=== PATIENT | female | born 1990 | race Caucasian/White ===

== ENCOUNTER 2016-10-02 23:07 | Emergency (ER) | payer MEDICAID, OTHER ==
[~2016-10-02] VITALS: Ht 165.1 cm; Wt 50.0 kg
[2016-10-02 23:34] VITALS: BP 115/66; PULSE 65; RESP 19; TEMP 98.3; O2SAT 100
--- NOTE | 2016-10-02 23:37 | PD ---
HPI Chief Complaint: Psychiatric Symptoms Time Seen by Provider: 23:34 Travel History International Travel<30 days: No Contact w/Intl Traveler<30days: No History of Present Illness HPI Patient comes under [place] by police after running away from home and refusing to go back. Per Ely act patient has the mental capacity of [id number]. Patient denies any medical complaints or concerns. Denies any chest pain, shortness of breath, nausea, vomiting, abdominal pain, fevers, , or loss change in bowel or bladder. Patient denies anything making her symptoms worse. States not going home makes her better, because her mom's going to be mad at her. PFSH Past Medical History Medical History: Denies Significant Hx Social History Alcohol Use: No Tobacco Use: No Substance Use: No Allergies-Medications (Allergen,Severity, Reaction): Coded Allergies: No Known Allergies (Unverified , 10/02/16) Reported Meds & Prescriptions Reported Meds & Active Scripts Active No Active Prescriptions or Reported Medications Review of Systems Except as stated in HPI: all other systems reviewed are Neg Physical Exam Narrative GENERAL: Well-developed, well nourished, in no acute distress, and non-ill appearing. SKIN: Focused skin assessment warm and dry. HEAD: Atraumatic. Normocephalic. EYES: Pupils equal and round. EOMI. No scleral icterus. No injection or drainage. ENT: No nasal bleeding or discharge. Mucous membranes pink and moist. NECK: Trachea midline. Supple. No nuclear rigidity. CARDIOVASCULAR: Regular rate and rhythm. No murmur appreciated. RESPIRATORY: No accessory muscle use. No respiratory distress. Clear to auscultation. Breath sounds equal bilaterally. MUSCULOSKELETAL: No obvious deformities. No clubbing. No cyanosis. No edema. Full range of motion. NEUROLOGICAL: Awake and alert. No obvious cranial nerve deficits. Motor grossly within normal limits. Normal speech. PSYCHIATRIC: Appropriate mood and affect; insight and judgment normal. Data Data Last Documented VS Vital Signs Date Time Temp Pulse Resp B/P Pulse Ox O2 Delivery O2 Flow Rate FiO2 10/02/16 23:34 98.3 65 19 115/66 100 Orders Complete Blood Count With Diff (10/02/16 23:22) Comprehensive Metabolic Panel (10/02/16 23:22) Urinalysis - C+S If Indicated (10/02/16 23:22) Ed Urine Pregnancytest Poc (10/02/16 23:22) Psych Screen (10/02/16 23:22) Drug Screen, Random Urine (10/02/16 23:22) Alcohol (Ethanol) (10/02/16 23:22) Salicylates (Aspirin) (10/02/16 23:22) Tylenol (Acetaminophen) (10/02/16 23:22) Urine Culture (10/02/16 23:30) Labs Laboratory Tests Test 10/02/16 23:30 White Blood Count 11.5 TH/MM3 Red Blood Count 4.42 MIL/MM3 Hemoglobin 13.4 GM/DL Hematocrit 38.9 % Mean Corpuscular Volume 88.0 FL Mean Corpuscular Hemoglobin 30.4 PG Mean Corpuscular Hemoglobin 34.5 % Concent Red Cell Distribution Width 13.6 % Platelet Count 198 TH/MM3 Mean Platelet Volume 9.8 FL Neutrophils (%) (Auto) 74.6 % Lymphocytes (%) (Auto) 17.2 % Monocytes (%) (Auto) 6.3 % Eosinophils (%) (Auto) 1.5 % Basophils (%) (Auto) 0.4 % Neutrophils # (Auto) 8.5 TH/MM3 Lymphocytes # (Auto) 2.0 TH/MM3 Monocytes # (Auto) 0.7 TH/MM3 Eosinophils # (Auto) 0.2 TH/MM3 Basophils # (Auto) 0.0 TH/MM3 CBC Comment DIFF FINAL Differential Comment Urine Color LIGHT-YELLOW Urine Turbidity HAZY Urine pH 6.5 Urine Specific [place] 1.009 Urine Protein NEG mg/dL Urine Glucose (UA) NEG mg/dL Urine Ketones NEG mg/dL Urine Occult Blood NEG Urine Nitrite NEG Urine Bilirubin NEG Urine Urobilinogen LESS THAN 2.0 MG/DL Urine Leukocyte Esterase NEG Urine RBC 1 /hpf Urine WBC 4 /hpf Urine Squamous Epithelial 3 /hpf Cells Urine Transitional Epithelial <1 /hpf Cells Urine Amorphous Sediment RARE Urine Bacteria MOD /hpf Urine Mucus FEW /lpf Microscopic Urinalysis Comment CULTURE INDICATED Sodium Level 141 MEQ/L Potassium Level 3.9 MEQ/L Chloride Level 108 MEQ/L Carbon Dioxide Level 23.9 MEQ/L Anion Gap 9 MEQ/L Blood Urea Nitrogen 11 MG/DL Creatinine 0.80 MG/DL Estimat Glomerular Filtration 88 ML/MIN Rate Random Glucose 75 MG/DL Calcium Level 8.8 MG/DL Total Bilirubin 0.3 MG/DL Aspartate Amino Transf 7 U/L (AST/SGOT) Alanine Aminotransferase 14 U/L (ALT/SGPT) Alkaline Phosphatase 58 U/L Total Protein 7.4 GM/DL Albumin 4.2 GM/DL Salicylates Level LESS THAN 1.7 MG/DL Urine Opiates Screen NEG Acetaminophen Level LESS THAN 2.0 MCG/ML Urine Barbiturates Screen NEG Urine Amphetamines Screen NEG Urine Benzodiazepines Screen NEG Urine Cocaine Screen NEG Urine Cannabinoids Screen NEG Ethyl Alcohol Level LESS THAN 3 MG/DL MDM Medical Decision Making Medical Screen Exam Complete: Yes Emergency Medical Condition: Yes Differential Diagnosis Homicidal, suicidal, electrolyte abnormality, UTI, other Narrative Course Patient was seen and examined. Labs were obtained and reviewed. Will await urine culture patient is asymptomatic and afebrile suspect it may be contaminant. Patient medically cleared for further treatment and evaluation by psych. Final disposition per psych. Diagnosis Primary Impression: Medical clearance for psychiatric admission Scripts No Active Prescriptions or Reported Meds Condition: Kenan Dillon Oct 02, 2016 23:37 No Active Prescriptions or Reported Meds Condition: Kenan Dillon Oct 02, 2016 23:37
[2016-10-02 23:49] LABS: AUTOMATED NEUTROPHIL # 8.5 TH/MM3 (1.8-7.7); BACTERIA, URINE MOD /hpf; BASOPHIL % 0.4 % (0.0-2.0); BLOOD, URINE NEG (NEG); COMMENT (UR) CULTURE INDICATED; CULTURE IF INDICATED CULTURE INDICATED; EOSINOPHIL # 0.2 TH/MM3 (0-0.4); EOSINOPHIL % 1.5 % (0.0-4.0); GLUCOSE,URINE NEG (NEG); HEMATOCRIT 38.9 % (35.0-46.0); HEMO FLAGS DIFF FINAL; KETONE, URINE NEG (NEG); LYMPH % 17.2 % (9.0-44.0); MEAN CORPUSCULAR HEMOGLOBIN 30.4 PG (27.0-34.0); MEAN CORPUSCULAR HGB CONC 34.5 % (32.0-36.0); MONO % 6.3 % (0.0-8.0); MUCUS URINE FEW /lpf (OCC); NEUT % 74.6 % (16.0-70.0); NITRITE,URINE NEG (NEG); PH, URINE 6.5 (5.0-8.5); PLATELET COUNT 198 TH/MM3 (150-450); RED BLOOD COUNT 4.42 MIL/MM3 (4.00-5.30); RED CELL DISTRIBUTION WIDTH 13.6 % (11.6-17.2); SQUAMOUS EPITHELIAL CELL URINE 3 /hpf (0-5); TRANSITIONAL EPI CELLS, URINE <1 /hpf; URINE COLOR LIGHT-YELLOW (YELLW/STRAW); WHITE BLOOD COUNT 11.5 TH/MM3 (4.0-11.0)
[2016-10-02 23:54] LABS: AMPHETAMINE, URINE NEG (NEG); BARBITURATES, URINE NEG (NEG); COCAINE, URINE NEG (NEG)
[2016-10-03 00:09] LABS: ANION GAP 9 MEQ/L (5-15)
[2016-10-03 00:11] LABS: ALKALINE PHOSPHATASE 58 U/L (45-117); ALT (GPT) 14 U/L (10-53); AST (GOT) 7 U/L (15-37); BICARBONATE 23.9 MEQ/L (21.0-32.0); BLOOD UREA NITROGEN 11 MG/DL (7-18); CHLORIDE 108 MEQ/L (98-107); GLOMERULAR FILTRATION RATE 88 ML/MIN (>89); POTASSIUM 3.9 MEQ/L (3.5-5.1); SODIUM (NA) 141 MEQ/L (136-145); TOTAL BILIRUBIN ADULT 0.3 MG/DL (0.2-1.0)
[2016-10-03 00:12] LABS: ACETAMINOPHEN LESS THAN 2.0 MCG/ML (10.0-30.0)
[2016-10-03 07:42] VITALS: BP 102/60; PULSE 80; RESP 14; O2SAT 98
--- NOTE | 2016-10-03 09:08 | PD.PSY.CON ---
Provisional Diagnosis Admission Date Date of consultation 10/03/2016 [place] I. 1. Autism spectrum disorder Lyon II. 1. Intellectual disability History of Present Illness Service Psychiatry Consult Requested By Emergency department Reason for Consult Ely act Primary Care Physician Unknown HPI Ms. Sylvester is a 26-year-old female with a history of autism spectrum disorder and intellectual disability who presents under a Ely act from law enforcement alleging that the patient ran away. Reviewing the electronic medical record, I see no prior psychiatric contact within our system. Patient seen and examined. Chart reviewed. Case discussed with nursing staff. Patient has been no behavioral problem in the ED per nurse. On my examination today, the patient presents as quite childlike. She is calm and cooperative with evaluation however. She says that she ran away because she doesn't like living at home. She says that she doesn't like living at home because "my mom is being bossy. She tells me what to do. My sister keeps bossing me around. So does my dad. I just took off." There is no evidence of any unstable mood disorder in this patient and in fact she seems generally euthymic. She denies any suicidal or homicidal ideation. There is no evidence of any unstable psychotic disorder. She denies audiovisual hallucinations, nor can I elicit any delusional beliefs. The remainder of the psychiatric ROS is negative. Past psychiatric history: Patient is likely an unreliable historian. She thinks that she might follow psychiatrically at [facility]. She is unsure of her diagnosis. She denies a history of psychiatric admissions or suicide attempts. Family history: Patient denies any family history of mental illness. Chemical dependency history: The patient reports occasional alcohol use. Social history: Graduated high school in special education classes. Has a boyfriend. No children. Denies any or legal history. Obtained collateral from patient's mother, Eden, over the phone. She notes that the patient has a history of autism, intellectual disability and ADHD. She has not been on any psychotropic medications in over a year. She periodically experiences temper tantrums and has been physically aggressive in the past. She previously had been staying with her boyfriend but had recently returned to the family home. Mother notes that the patient is "okay, so long as she gets her way." Mother also notes that the patient has been hospitalized in the past and has seen psychiatrists and has been on multiple psychotropic medications, none of which have proven particularly helpful. Mother agrees that psychiatric hospitalization would not be beneficial for this patient at this time. No one in the family has guardianship is of the expense per mother. They are not connected with [employer], nor do they have an outpatient family preservation caseworker. Review of Systems ROS Limitations: Poor Historian Except as stated in HPI: all other systems reviewed are Neg Past Family Social History Coded Allergies: No Known Allergies (Unverified , 10/02/16) Past Medical History See electronic medical record No Active Prescriptions or Reported Meds On no psychotropics currently Patient's Strengths (min. 2) Good physical health. Verbally fluent. Physical Exam Physical exam completed by ED provider. On my examination today, the patient appears to be in no acute physical distress. No motor abnormalities noted. Labs and vitals reviewed: Vital Signs Vital Signs Date Time Temp Pulse Resp B/P Pulse Ox O2 Delivery O2 Flow Rate FiO2 10/03/16 07:42 80 14 102/60 98 Room Air 10/02/16 23:34 98.3 Lab Results Laboratory Tests Test 10/02/16 23:30 White Blood Count 11.5 TH/MM3 Red Blood Count 4.42 MIL/MM3 Hemoglobin 13.4 GM/DL Hematocrit 38.9 % Mean Corpuscular Volume 88.0 FL Mean Corpuscular Hemoglobin 30.4 PG Mean Corpuscular Hemoglobin 34.5 % Concent Red Cell Distribution Width 13.6 % Platelet Count 198 TH/MM3 Mean Platelet Volume 9.8 FL Neutrophils (%) (Auto) 74.6 % Lymphocytes (%) (Auto) 17.2 % Monocytes (%) (Auto) 6.3 % Eosinophils (%) (Auto) 1.5 % Basophils (%) (Auto) 0.4 % Neutrophils # (Auto) 8.5 TH/MM3 Lymphocytes # (Auto) 2.0 TH/MM3 Monocytes # (Auto) 0.7 TH/MM3 Eosinophils # (Auto) 0.2 TH/MM3 Basophils # (Auto) 0.0 TH/MM3 CBC Comment DIFF FINAL Differential Comment Urine Color LIGHT-YELLOW Urine Turbidity HAZY Urine pH 6.5 Urine Specific [place] 1.009 Urine Protein NEG mg/dL Urine Glucose (UA) NEG mg/dL Urine Ketones NEG mg/dL Urine Occult Blood NEG Urine Nitrite NEG Urine Bilirubin NEG Urine Urobilinogen LESS THAN 2.0 MG/DL Urine Leukocyte Esterase NEG Urine RBC 1 /hpf Urine WBC 4 /hpf Urine Squamous Epithelial 3 /hpf Cells Urine Transitional Epithelial <1 /hpf Cells Urine Amorphous Sediment RARE Urine Bacteria MOD /hpf Urine Mucus FEW /lpf Microscopic Urinalysis Comment CULTURE INDICATED Sodium Level 141 MEQ/L Potassium Level 3.9 MEQ/L Chloride Level 108 MEQ/L Carbon Dioxide Level 23.9 MEQ/L Anion Gap 9 MEQ/L Blood Urea Nitrogen 11 MG/DL Creatinine 0.80 MG/DL Estimat Glomerular Filtration 88 ML/MIN Rate Random Glucose 75 MG/DL Calcium Level 8.8 MG/DL Total Bilirubin 0.3 MG/DL Aspartate Amino Transf 7 U/L (AST/SGOT) Alanine Aminotransferase 14 U/L (ALT/SGPT) Alkaline Phosphatase 58 U/L Total Protein 7.4 GM/DL Albumin 4.2 GM/DL Salicylates Level LESS THAN 1.7 MG/DL Urine Opiates Screen NEG Acetaminophen Level LESS THAN 2.0 MCG/ML Urine Barbiturates Screen NEG Urine Amphetamines Screen NEG Urine Benzodiazepines Screen NEG Urine Cocaine Screen NEG Urine Cannabinoids Screen NEG Ethyl Alcohol Level LESS THAN 3 MG/DL Mental Status Examination Patient is in hospital gown. She is well groomed. She is awake and alert and oriented to person at least. No motor abnormalities noted. Speech is within normal limits for rate, tone and volume. Language and fund of knowledge reduced for age. Focus and concentration fairly intact. Memory grossly intact on clinical exam. Mood fair and affect euthymic but quite childlike. Thought process concrete. No loosening of associations. No delusions elicited. Denies audiovisual hallucinations. Denies suicidal or homicidal ideation. Insight and judgment are chronically poor. Assessment & Plan Problem List: (1) Intellectual disability ICD Code: F79 (2) Autism spectrum disorder ICD Code: F84.0 Assessment & Plan This is a 26-year-old female with psychiatric history as detailed above who presents under Ely act. On my examination today, I can detect no unstable mental illness as defined under the Ely act. Intellectual disability and developmental disabilities are not covered by the Ely Act definition of mental illness. She is unlikely to derive any significant benefit from psychiatric hospitalization, in any event, and patient's mother agrees with this assessment. I have lifted the Ely act. Patient would likely benefit far more from increased support in the community. I have asked the nurse from the [facility] to refer the patient's mother for case management services through [facility] and also to provide a referral to [employer]. In the longer term, patient's family might benefit from obtaining guardianship over patient and considering long-term placement. Patient to return to psychiatric emergency room for any concerning psychiatric symptoms. Patient is otherwise psychiatrically clear for discharge from the ED. Thank you very much for this consultation. Naseem Boo MD Oct 03, 2016 09:08
[2016-10-03 11:40] VITALS: BP 100/53; PULSE 60; RESP 18; O2SAT 98
== END 2016-10-03 15:09 | disposition home or self-care (01) ==
LOC: NEPD 23:07
DX: Z00.8 Encounter for other general examination (principal)
CPT/HCPCS: 80053; 80307; 81001; 84703; 85025; 87086; 99283

== ENCOUNTER 2016-11-29 18:48 | Inpatient (IN) | payer MEDICAID, OTHER ==
[~2016-11-29] VITALS: Ht 162.6 cm; Wt 38.2 kg
[2016-11-29 19:07] VITALS: BP 102/65; PULSE 98; RESP 16; TEMP 98.7; O2SAT 97
[2016-11-29] MEDS ORDERED: SODIUM CHLOR 0.9% 1000 ML INJ 1,000 ML IV SCH ×2 (19:16)
--- NOTE | 2016-11-29 19:23 | PD ---
HPI Chief Complaint: Altered Mental Status Time Seen by Provider: 19:05 Travel History International Travel<30 days: No Contact w/Intl Traveler<30days: No Traveled to known affect area: No History of Present Illness HPI This is a 26-year-old female who has a history of autism, ADHD, intellectual disability per chart review, presents in police custody for evaluation. For the past week the patient has been acting catatonic, she has been drooling on herself. She had an outpatient CK test which was elevated and she was sent here to rule out neuroleptic malignant syndrome. According to her paperwork the patient was given invega 117 mg on November 10, 2016 and Cogentin BID at [facility]. She was transferred to long-term and she was being given Risperdal once a day which was stopped on November 27. History is limited from the patient given her current clinical condition and her history of developmental delay, autism. She reports that she feels "lightheaded and woozy." No other complaints at this time. COUNTS INCLUDE 234 BEDS AT THE [facility] Past Medical History Developmental Delay: Yes Diminished Hearing: No Immunizations Current: Yes Tetanus Vaccination: Unknown ?: Not LMP: pt unsure Past Surgical History Neurologic Surgery: Yes (BACK) Social History Alcohol Use: No Tobacco Use: No Substance Use: No Allergies-Medications (Allergen,Severity, Reaction): Coded Allergies: No Known Allergies (Unverified , 10/02/16) Reported Meds & Prescriptions Reported Meds & Active Scripts Active Reported Ensure (Nutritional Supplements) 1 Pow Pow 237 Ml PO BID Lorazepam 0.5 Mg Tab 0.5 Mg PO TID PRN Review of Systems ROS Limitations: Clinical Condition, Poor Historian Except as stated in HPI: all other systems reviewed are Neg Physical Exam Exam Limitations: Clinical Condition, Poor Historian Narrative GENERAL: This is a well-developed well-nourished female who is in no acute distress. SKIN: Warm and dry. HEAD: Atraumatic. Normocephalic. EYES: Pupils equal and round reactive to light. Extraocular muscles are intact. No scleral icterus. No injection or drainage. ENT: No nasal bleeding or discharge. Mucous membranes pink and moist. NECK: Trachea midline. No JVD. CARDIOVASCULAR: Regular rate and rhythm. No murmur appreciated. RESPIRATORY: No accessory muscle use. Clear to auscultation. Breath sounds equal bilaterally. GASTROINTESTINAL: Abdomen soft, non-tender, nondistended. Hepatic and splenic margins not palpable. MUSCULOSKELETAL: No obvious deformities. No edema. NEUROLOGICAL: Awake and alert. Catatonic. Mild muscle rigidity is noted. 1+ patellar reflex, Achilles reflex bilaterally. No clonus. Some drooling is noted. PSYCHIATRIC: Flat affect. Data Data Last Documented VS Vital Signs Date Time Temp Pulse Resp B/P (MAP) Pulse Ox O2 Delivery O2 Flow Rate FiO2 11/29/16 20:41 82 18 105/62 (76) 100 Room Air 11/29/16 19:07 98.7 Orders Orders Complete Blood Count With Diff (11/29/16 19:16) Comprehensive Metabolic Panel (11/29/16 19:16) Creatine Kinase (Cpk) (11/29/16 19:16) Electrocardiogram (11/29/16 ) Lactic Acid (11/29/16 19:16) Sodium Chlor 0.9% 1000 Ml Inj (Ns 1000 M (11/29/16 19:16) Ed Urine Pregnancytest Poc (11/29/16 19:16) Sodium Chlor 0.9% 1000 Ml Inj (Ns 1000 M (11/29/16 19:16) Drug Screen, Random Urine (11/29/16 19:23) CKMB (11/29/16 19:25) CKMB% (11/29/16 19:25) Admit Order (Ed Use Only) (11/29/16 21:24) Labs Laboratory Tests Test 11/29/16 19:25 White Blood Count 10.5 TH/MM3 Red Blood Count 4.76 MIL/MM3 Hemoglobin 14.9 GM/DL Hematocrit 42.7 % Mean Corpuscular Volume 89.7 FL Mean Corpuscular Hemoglobin 31.4 PG Mean Corpuscular Hemoglobin Concent 35.0 % Red Cell Distribution Width 13.7 % Platelet Count 207 TH/MM3 Mean Platelet Volume 10.5 FL Neutrophils (%) (Auto) 70.7 % Lymphocytes (%) (Auto) 18.7 % Monocytes (%) (Auto) 8.9 % Eosinophils (%) (Auto) 1.3 % Basophils (%) (Auto) 0.4 % Neutrophils # (Auto) 7.4 TH/MM3 Lymphocytes # (Auto) 2.0 TH/MM3 Monocytes # (Auto) 0.9 TH/MM3 Eosinophils # (Auto) 0.1 TH/MM3 Basophils # (Auto) 0.0 TH/MM3 CBC Comment DIFF FINAL Differential Comment Blood Urea Nitrogen 8 MG/DL Creatinine 0.72 MG/DL Random Glucose 87 MG/DL Total Protein 7.6 GM/DL Albumin 4.5 GM/DL Calcium Level 9.5 MG/DL Alkaline Phosphatase 75 U/L Aspartate Amino Transf (AST/SGOT) 58 U/L Alanine Aminotransferase (ALT/SGPT) 32 U/L Total Bilirubin 0.5 MG/DL Sodium Level 137 MEQ/L Potassium Level 3.4 MEQ/L Chloride Level 100 MEQ/L Carbon Dioxide Level 29.1 MEQ/L Anion Gap 8 MEQ/L Estimat Glomerular Filtration Rate 100 ML/MIN Lactic Acid Level 1.3 mmol/L Total Creatine Kinase 1454 U/L Creatine Kinase MB 19.1 NG/ML Creatine Kinase MB % 1.3 % MDM Medical Decision Making Medical Screen Exam Complete: Yes Emergency Medical Condition: Yes Medical Record Reviewed: Yes Differential Diagnosis Neuroleptic malignant syndrome, serotonin syndrome, rhabdomyolysis Narrative Course This is a 26-year-old female who for the past week has been acting catatonic, drooling, appears to have mild muscle rigidity as well as sialorrhea. She had an elevated CK as an outpatient and was sent here for further evaluation. She was recently given invega as well as Cogentin and has been on Risperdal which was discontinued 2 days ago. Certainly her symptoms of mild muscle rigidity, elevated CK, sialorrhea, catotonia are concerning for early neuroleptic malignant syndrome. Reassuringly she is not hyperthermic. The patient be given 2 L of IV fluids. She was placed on ECG monitoring pulse oximetry. Plan is for basic lab work, 12-lead EKG. The patient's lab work does reveal an elevated CK, potassium 3.4, otherwise unremarkable. At this point and plan is to admit the patient for further treatment of early neuroleptic malignant syndrome and rhabdomyolysis. Discussed with Dr. Eldridge who is agreeable. Diagnosis Primary Impression: Neuroleptic malignant syndrome Additional Impression: Rhabdomyolysis Qualified Codes: M62.82 - Rhabdomyolysis Admitting Information Admitting Physician Requests: Admit Maurilio Orantes Nov 29, 2016 19:23
[2016-11-29 19:50] LABS: AUTOMATED NEUTROPHIL # 7.4 TH/MM3 (1.8-7.7); BASOPHIL % 0.4 % (0.0-2.0); EOSINOPHIL # 0.1 TH/MM3 (0-0.4); EOSINOPHIL % 1.3 % (0.0-4.0); HEMATOCRIT 42.7 % (35.0-46.0); HEMO FLAGS DIFF FINAL; LYMPH % 18.7 % (9.0-44.0); MEAN CELL VOLUME 89.7 FL (80.0-100.0); MEAN CORPUSCULAR HEMOGLOBIN 31.4 PG (27.0-34.0); MONO % 8.9 % (0.0-8.0); NEUT % 70.7 % (16.0-70.0); PLATELET COUNT 207 TH/MM3 (150-450); RED BLOOD COUNT 4.76 MIL/MM3 (4.00-5.30); RED CELL DISTRIBUTION WIDTH 13.7 % (11.6-17.2); WHITE BLOOD COUNT 10.5 TH/MM3 (4.0-11.0)
[2016-11-29 20:01] LABS: ANION GAP 8 MEQ/L (5-15); AST (GOT) 58 U/L (15-37); BICARBONATE 29.1 MEQ/L (21.0-32.0); BLOOD UREA NITROGEN 8 MG/DL (7-18); CHLORIDE 100 MEQ/L (98-107); GLOMERULAR FILTRATION RATE 100 ML/MIN (>89); POTASSIUM 3.4 MEQ/L (3.5-5.1); SODIUM (NA) 137 MEQ/L (136-145)
[2016-11-29 20:02] LABS: ALT (GPT) 32 U/L (10-53)
[2016-11-29 20:16] LABS: ALKALINE PHOSPHATASE 75 U/L (45-117); CREATINE KINASE 1454 U/L (26-192); TOTAL BILIRUBIN ADULT 0.5 MG/DL (0.2-1.0)
[2016-11-29 20:25] VITALS: BP 96/64; PULSE 136; RESP 18; O2SAT 100
[2016-11-29] MEDS ORDERED: RISP1 PO (20:31)
[2016-11-29] MEDS ORDERED: ENSUPOW PO (20:31)
[2016-11-29] MEDS ORDERED: LORA-373 PO (20:31)
[2016-11-29 20:41] VITALS: BP 105/62; PULSE 82; RESP 18; O2SAT 100
[2016-11-29 21:26] LABS: CKMB 19.1 NG/ML (0.5-3.6)
[2016-11-29 21:57] VITALS: BP 101/66; PULSE 112; RESP 16; O2SAT 98
[2016-11-29 22:30] VITALS: BP 103/66; PULSE 70; RESP 16; O2SAT 100
[2016-11-29] MEDS ORDERED: LORazepam 0.5 MG TAB PO PRN (22:30)
--- NOTE | 2016-11-29 23:26 | EKG ---
Date Performed: 11/29/2016 Time Performed: 19:56:38 PTAGE: 26 years EKG: Sinus rhythm POSSIBLE LEFT ATRIAL ENLARGEMENT NONSPECIFIC T-WAVE ABNORMALITY BORDERLINE ECG NO PREVIOUS TRACING DOCTOR: Nikunj Cameron Interpretating Date/Time 11/29/2016 23:25:37
[2016-11-29 23:46] VITALS: BP 101/62; PULSE 72; RESP 16; O2SAT 100
[2016-11-29] MEDS: SODIUM CHLOR 0.9% 1000 ML INJ 1,000 ML IV SCH (23:58)
[2016-11-29] MEDS: FAMOTIDINE 20 MG/2 ML VIAL IV PUSH SCH (23:58)
[2016-11-30] VITALS (7 sets, daily range): BP systolic 101–116; BP diastolic 58–68; PULSE 62–88; RESP 16–20; TEMP 97.5–98.5; O2SAT 93–100
[2016-11-30] MEDS: SODIUM CHLOR 0.9% 1000 ML INJ 1,000 ML IV SCH ×5 (01:15→22:30)
[2016-11-30] MEDS: FAMOTIDINE 20 MG/2 ML VIAL IV PUSH SCH ×2 (08:52→21:39)
[2016-11-30] MEDS ORDERED: NUTRITIONAL SUPPLEMENTS PO SCH (09:00)
[2016-11-30] MEDS ORDERED: LORazepam 2 MG/ML VIAL IV PUSH STA (11:08)
--- NOTE | 2016-11-30 11:12 | HHI.HP ---
HPI Service [facility] Primary Care Physician No Primary Care Physician Admission Diagnosis neuroleptic malignant syndrome, rhabdomyolysis Diagnoses: Chief Complaint: altered mental status (Tali Bianchi) Travel History International Travel<30 Days: No Contact w/Intl Traveler <30 Da: No Traveled to Known Affected Are: No (Tali Bianchi) History of Present Illness Ms. Sylvester is a 26-year-old female with significant past medical history of autism spectrum disorder, ADHD, intellectual disability. Patient presented to the emergency room under police custody for evaluation for acting catatonic and elevated CK test with the concern for possible neuroleptic malignant syndrome. Review of paperwork from the [place] [facility], the patient was given Hemabate 117 mg on November 10, 2016 and Cogentin twice a day a store . She was transferred to the [place] [facility] and she was put on Risperdal once a day, this was stopped November 27. Patient is examined in the presence of the guard. Per the guard, patient's is usually slow to respond, but pleasant. Apparently she has become catatonic, has been drooling on herself. She was noted with rigid extremities. Patient is not able to provide much information. She knows she is in the hospital, able to provide the year but otherwise can articulate why she is in the hospital. Patient denies any discomfort when asked. She's been evaluated by psychiatrist Dr. Holguin. She denies any suicidal ideation , no homicidal ideation. She denies visual or auditory hallucinations. She was seen in September in the emergency room and evaluated by . Laboratory workup was completed. CBC unremarkable. BMP remarkable for elevated total creatinine kinase 1454, AST 58, potassium 3.4. Patient is currently on IV fluids. She was able to eat well this morning. Patient is admitted for further evaluation and treatment. (Tali Bianchi) Review of Systems ROS Limitations: Clinical Condition, Altered Mental Status Gastrointestinal: COMPLAINS OF: Abdominal pain (Tali Bianchi) Past Family Social History Past Medical History ADHD Austism LMP-unknown Past Surgical History Unable to obtain Reported Medications Reported Meds & Active Scripts Active Reported Ensure (Nutritional Supplements) 1 Pow Pow 237 Ml PO BID Lorazepam 0.5 Mg Tab 0.5 Mg PO TID PRN (Tali Bianchi) Allergies: Coded Allergies: No Known Allergies (Unverified , 10/02/16) Active Ordered Medications Inpatient Medications Famotidine (Pepcid Inj) 20 mg Q12HR IV PUSH Last administered on 11/30/16 08: 52; Start 11/29/16 at 22:30 Lorazepam (Ativan) 0.5 mg TID PRN PO ANXIETY; Start 11/29/16 at 22:30 Sodium Chloride 1,000 ml @ 125 mls/hr Q8H IV Last administered on 11/30/16 07 :02; Start 11/29/16 at 22:30 Family History unable to provide Social History Currently incarcerated before she was living with mother.Has siblings no smoking no ETOH no illegal drug use Patient completed high school, she's single, she's not working. (Tali Bianchi) Physical Exam Vital Signs Vital Signs Date Time Temp Pulse Resp B/P (MAP) Pulse Ox O2 Delivery O2 Flow Rate FiO2 11/30/16 09:05 98.5 76 20 102/59 (73) 100 11/30/16 04:00 97.7 62 20 102/63 (76) 99 11/30/16 01:15 97.5 68 16 116/68 (84) 100 11/30/16 00:24 72 16 102/63 (76) 99 11/29/16 23:46 72 16 101/62 (75) 100 Room Air 11/29/16 22:30 70 16 103/66 (78) 100 Room Air 11/29/16 21:57 112 16 101/66 (78) 98 Room Air 11/29/16 20:41 82 18 105/62 (76) 100 Room Air 11/29/16 20:25 136 18 96/64 (75) 100 Room Air 11/29/16 19:07 98.7 98 16 102/65 (77) 97 Physical Exam GENERAL: This is a well-nourished, well-developed patient, in no apparent distress. SKIN: No rashes, ecchymoses or lesions. Cool and dry. HEAD: Atraumatic. Normocephalic. No temporal or scalp tenderness. EYES: Pupils equal round and reactive. Extraocular motions intact. No scleral icterus. Bilateral conjunctiva with purulent exudate, mildly erythematous. ENT: Nose without bleeding, purulent drainage or septal hematoma. Throat without erythema, tonsillar hypertrophy or exudate. Uvula midline. Airway patent. NECK: Trachea midline. No JVD or lymphadenopathy. Supple, nontender, no meningeal signs. CARDIOVASCULAR: Regular rate and rhythm without murmurs, gallops, or rubs. RESPIRATORY: Clear to auscultation. Breath sounds equal bilaterally. No wheezes , rales, or rhonchi. GASTROINTESTINAL: Abdomen soft, non-tender, nondistended. No hepato-splenomegaly , or palpable masses. No guarding. MUSCULOSKELETAL: Extremities without clubbing, cyanosis, or edema. No joint tenderness, effusion, or edema noted. No calf tenderness. Negative Homans sign bilaterally. NEUROLOGICAL: Awakes to voice, slow to respond. Poor historian. Noted drooling. Rigidity to upper and lower extremities noted. Follows simple commands. Laboratory Laboratory Tests Test 11/29/16 19:25 White Blood Count 10.5 Red Blood Count 4.76 Hemoglobin 14.9 Hematocrit 42.7 Mean Corpuscular Volume 89.7 Mean Corpuscular Hemoglobin 31.4 Mean Corpuscular Hemoglobin Concent 35.0 Red Cell Distribution Width 13.7 Platelet Count 207 Mean Platelet Volume 10.5 Neutrophils (%) (Auto) 70.7 Lymphocytes (%) (Auto) 18.7 Monocytes (%) (Auto) 8.9 Eosinophils (%) (Auto) 1.3 Basophils (%) (Auto) 0.4 Neutrophils # (Auto) 7.4 Lymphocytes # (Auto) 2.0 Monocytes # (Auto) 0.9 Eosinophils # (Auto) 0.1 Basophils # (Auto) 0.0 CBC Comment DIFF FINAL Differential Comment Blood Urea Nitrogen 8 Creatinine 0.72 Random Glucose 87 Total Protein 7.6 Albumin 4.5 Calcium Level 9.5 Alkaline Phosphatase 75 Aspartate Amino Transf (AST/SGOT) 58 Alanine Aminotransferase (ALT/SGPT) 32 Total Bilirubin 0.5 Sodium Level 137 Potassium Level 3.4 Chloride Level 100 Carbon Dioxide Level 29.1 Anion Gap 8 Estimat Glomerular Filtration Rate 100 Lactic Acid Level 1.3 Total Creatine Kinase 1454 Creatine Kinase MB 19.1 Creatine Kinase MB % 1.3 (Tali Bianchi) Result Diagram: 11/29/16192411/29/161924 Caprini VTE Risk Assessment Caprini VTE Risk Assessment: No/Low Risk (score <= 1) Caprini Risk Assessment Model Point Value = 1 Point Value = 2 Point Value = 3 Point Value = 5 Age 41-60 Minor surgery BMI > 25 kg/m2 Swollen legs Varicose veins or History of unexplained or recurrent spontaneous Oral contraceptives or hormone replacement Sepsis (< 1 month) Serious lung disease, including pneumonia (< 1 month) Abnormal pulmonary function Acute myocardial infarction Congestive heart failure (< 1 month) History of inflammatory bowel disease Medical patient at bed rest Age 61-74 Arthroscopic surgery Major open surgery (> 45 min) Laparoscopic surgery (> 45 min) Malignancy Confined to bed (> 72 hours) Immobilizing plaster cast Central venous access Age >= 75 History of VTE Family history of VTE Factor V Leiden Prothrombin [id number] Lupus anticoagulant Anticardiolipin antibodies Elevated serum homocysteine Heparin-induced thrombocytopenia Other congenital or acquired thrombophilia Stroke (< 1 month) Elective arthroplasty Hip, pelvis, or leg fracture Acute spinal cord injury (< 1 month) Prophylaxis Regimen Total Risk Factor Score Risk Level Prophylaxis Regimen 0-1 Low Early ambulation 2 Moderate Order ONE of the following: *Sequential Compression Device (SCD) *Heparin 5000 units SQ BID 3-4 Higher Order ONE of the following medications: *Heparin 5000 units SQ TID *Enoxaparin/Lovenox 40 mg SQ daily (WT < 150 kg, CrCl > 30 mL/min) *Enoxaparin/Lovenox 30 mg SQ daily (WT < 150 kg, CrCl > 10-29 mL/min) *Enoxaparin/Lovenox 30 mg SQ BID (WT < 150 kg, CrCl > 30 mL/min) AND/OR *Sequential Compression Device (SCD) 5 or more Highest Order ONE of the following medications: *Heparin 5000 units SQ TID (Preferred with Epidurals) *Enoxaparin/Lovenox 40 mg SQ daily (WT < 150 kg, CrCl > 30 mL/min) *Enoxaparin/Lovenox 30 mg SQ daily (WT < 150 kg, CrCl > 10-29 mL/min) *Enoxaparin/Lovenox 30 mg SQ BID (WT < 150 kg, CrCl > 30 mL/min) AND *Sequential Compression Device (SCD) (Tali Bianchi) Assessment and Plan Problem List: (1) 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 Torres 26-year-old female with history of ADHD, autism, ADHD, intellectual disability. Presented catatonic with elevated CPK, concern for possible neuroleptic syndrome Catatonia -Psychiatry has been consulted -Benzodiazepine challenge will be started, continue to monitor the patient closely Possible neuroleptic syndrome, patient noted with elevated CPK. Had Invega as well as Risperdal. Rhabdomyolysis -Follow CPK levels -Continue with IV fluids -Monitor renal function, follow BMP level Bilateral conjunctivae -Ciprofloxacin 2 drops each eye 3 times a day Home medications reviewed, some initiated as indicated SCDs for DVT prophylaxis Pepcid for GI prophylaxis Under care discussed with attending and registered nurse. Further management of the patient will be dependent on the hospital course This patient was seen by myself and Dr. Torres, this H&P is written on his behalf (Tali Bianchi) Assessment and Plan seen, examined by myself, Dr Torres, today in the presence of the nurse and the armed guard Psychiatry evaluation noted Rule out neuroleptic malignant syndrome Also has bilateral conjunctivitis, Cipro eyedrops ordered Very poor oral hygiene, Peridex ordered Discussed with patient, she is a poor historian Discussed with mid level provider The exam, history, and the medical decision-making described in the above note were completed with the assistance of the mid-level provider. I reviewed the findings presented. I attest that I had a [id number] encounter with the patient on the same day, and personally performed and documented my assessment and findings in the medical record. (Santosh Torres MD) Physician Certification 2 Midnight Certification Type: Admission for Inpatient Services Order for Inpatient Services The services are ordered in accordance with Medicare regulations or non- Medicare payer requirements, as applicable. In the case of services not specified as inpatient-only, they are appropriately provided as inpatient services in accordance with the 2-midnight benchmark. Estimated LOS (days): 2 2 days is the estimated time the patient will need to remain in the hospital, assuming treatment plan goals are met and no additional complications. Post-Hospital Plan: Other (specify) ([place] [facility] ) (Tali Bianchi) Problem Qualifiers (1) Rhabdomyolysis: Qualified Codes: M62.82 - Rhabdomyolysis (2) Conjunctivitis: Qualified Codes: H10.33 - Unspecified acute conjunctivitis, bilateral Tali Bianchi Nov 30, 2016 11:10 Santosh Torres MD Nov 30, 2016 17:24
[2016-11-30] MEDS ORDERED: POTASSIUM CHLORIDE 25 MEQ EFFERVESCENT TAB PO ONE (12:30)
--- NOTE | 2016-11-30 14:36 | PD.PSY.CON ---
Provisional Diagnosis Admission Date Nov 29, 2016 at 21:26 [place] I. Autism spectrum disorder, ADHD, catatonia [place] II. Deferred History of Present Illness Service Psychiatry Consult Requested By Reason for Consult Catatonic symptoms Primary Care Physician No Primary Care Physician HPI The patient is a 26-year-old woman, homicidal with her mother, unemployed, single on SSI, with psychiatric history of autism spectrum disorder , ADHD, intellectual disability, 3 psychotic hospitalizations, established outpatient care in [facility], she is on Invega Sustenna, 117 mg monthly, last dose was 11/20/2016, patient was seen here in [place] in the ER by Dr. Boo in September 2016, documentation was reviewed, somatic and medical history, who presents in police custody for evaluation of stiffness and changes in mentation. For the past week the patient has been acting catatonic, she has been drooling on herself. She had an outpatient CK test which was elevated and she was sent here to rule out neuroleptic malignant syndrome. According to her paperwork the patient was given invega 117 mg on November 10, 2016 and Cogentin BID at [facility]3]. [facility] and she was being given Risperdal once a day which was stopped on November 27. On psychiatric evaluation today patient is poorly cooperative due to levels of stiffness and rigidity, she has a marked and significant mutism, speech latency, blocking thought, negativism and catalepsy. Patient is able to mumble a few months automatic/monosyllabic statements. He says that she feels okay, she described her mood as "fine", denies suicidal ideation, denies homicidal ideation, denies visual and auditory hallucinations. Patient is unable to articulate the reason of her hospitalization. She is oriented 3. Juan Luis and Darrel Scale of catatonia was performed, it was 17, which shows moderate catatonia. Patient denies the use of illicit drugs or alcohol. Review of Systems Constitutional: DENIES: Diaphoretic episodes, Fatigue, Fever, Weight gain, Weight loss, Chills, Dizziness, Change in appetite, Night Sweats Endocrine: DENIES: Abnorml menstrual pattern, Heat/cold intolerance, Polydipsia , Polyuria, Polyphagia Eyes: DENIES: Blurred vision, Diplopia, Eye inflammation, Eye pain, Vision loss , Photosensitivity, Double Vision Ears, nose, mouth, throat: DENIES: Tinnitus, Hearing loss, Vertigo, Nasal discharge, Oral lesions, Throat pain, Hoarseness, Ear Pain, Running Nose, Epistaxis, Sinus Pain, Toothache, Odynophagia Respiratory: DENIES: Apneas, Cough, Snoring, Wheezing, Hemoptysis, Sputum production, Shortness of breath Cardiovascular: DENIES: Chest pain, Palpitations, Syncope, Dyspnea on Exertion , PND, Lower Extremity Edema, Orthopnea, Claudication Gastrointestinal: DENIES: Abdominal pain, Black stools, Bloody stools, Constipation, Diarrhea, Nausea, Vomiting, Difficulty Swallowing, Anorexia Musculoskeletal: DENIES: Joint pain, Muscle aches, Stiffness, Joint Swelling, Back pain, Neck pain Integumentary: DENIES: Abnormal pigmentation, Pruritus, Rash, Nail changes, Breast masses, Breast skin changes, Nipple discharge Hematologic/lymphatic: DENIES: Bruising, Lymphadenopathy Immunologic/allergic: DENIES: Eczema, Urticaria Neurologic: DENIES: Abnormal gait, Headache, Localized weakness, Paresthesias, Seizures, Speech Problems, Tremor, Poor Balance Psychiatric: DENIES: Anxiety, Confusion, Mood changes, Depression, Hallucinations, Agitation, Suicidal Ideation, Homicidal Ideation, Delusions Past Family Social History Coded Allergies: No Known Allergies (Unverified , 10/02/16) Reported Medications Nutritional Supplements (Ensure) 1 Pow Pow, 237 ML PO BID 11/29/16 Lorazepam (Lorazepam) 0.5 Mg Tab, 0.5 MG PO TID Y for ANXIETY, TAB 0 Refills 11/29/16 Discontinued Reported Medications Risperidone (Risperdal) 1 Mg Tab, 1 MG PO DAILY, #30 TAB 0 Refills 11/29/16 Current Medications Medications (Trade) Dose Ordered Sig/Carina Route Start Time Stop Time Status Last Admin (Ativan) 0.5 mg TID PRN PO 11/29/16 22:30 Sodium Chloride 1,000 ml @ 125 mls/hr Q8H IV 11/29/16 22:30 11/30/16 07:02 (Pepcid Inj) 20 mg Q12HR IV PUSH 11/29/16 22:30 11/30/16 08:52 (Ativan) 2 mg Q6H PO 11/30/16 14:15 UNV Family History No psychiatric family history Social History Graduated high school in special education classes. Has a boyfriend. No children. Denies any or legal history. Patient's Strengths (min. 2) Established outpatient care Physical Exam Vital Signs Vital Signs Date Time Temp Pulse Resp B/P (MAP) Pulse Ox O2 Delivery O2 Flow Rate FiO2 11/30/16 12:00 98.2 67 18 102/58 (73) 93 11/29/16 23:46 Room Air I/O 11/30/16 11/30/16 12/01/16 08:00 16:00 00:00 Intake Total 812 ml 180 ml Balance 812 ml 180 ml Lab Results Test 11/29/16 19:25 White Blood Count 10.5 TH/MM3 Red Blood Count 4.76 MIL/MM3 Hemoglobin 14.9 GM/DL Hematocrit 42.7 % Mean Corpuscular Volume 89.7 FL Mean Corpuscular Hemoglobin 31.4 PG Mean Corpuscular Hemoglobin Concent 35.0 % Red Cell Distribution Width 13.7 % Platelet Count 207 TH/MM3 Mean Platelet Volume 10.5 FL Neutrophils (%) (Auto) 70.7 % Lymphocytes (%) (Auto) 18.7 % Monocytes (%) (Auto) 8.9 % Eosinophils (%) (Auto) 1.3 % Basophils (%) (Auto) 0.4 % Neutrophils # (Auto) 7.4 TH/MM3 Lymphocytes # (Auto) 2.0 TH/MM3 Monocytes # (Auto) 0.9 TH/MM3 Eosinophils # (Auto) 0.1 TH/MM3 Basophils # (Auto) 0.0 TH/MM3 CBC Comment DIFF FINAL Differential Comment Blood Urea Nitrogen 8 MG/DL Creatinine 0.72 MG/DL Random Glucose 87 MG/DL Total Protein 7.6 GM/DL Albumin 4.5 GM/DL Calcium Level 9.5 MG/DL Alkaline Phosphatase 75 U/L Aspartate Amino Transf (AST/SGOT) 58 U/L Alanine Aminotransferase (ALT/SGPT) 32 U/L Total Bilirubin 0.5 MG/DL Sodium Level 137 MEQ/L Potassium Level 3.4 MEQ/L Chloride Level 100 MEQ/L Carbon Dioxide Level 29.1 MEQ/L Anion Gap 8 MEQ/L Estimat Glomerular Filtration Rate 100 ML/MIN Lactic Acid Level 1.3 mmol/L Total Creatine Kinase 1454 U/L Creatine Kinase MB 19.1 NG/ML Creatine Kinase MB % 1.3 % Mental Status Examination Appearance woman, age appearing, very rigid and stiff, poorly cooperative Speech: Other (poverty of speech, low tone, low volume,) Orientation: x3 Memory: Unremarkable Thought Process: Logical, Goal Directed Thought Content: Unremarkable Language Limited due to the level of rigidity and catatonia Hallucination Type: None Suicidal Ideation: No Previous Suicide Attempts: No Homicidal Ideation: No Previous Homicide Attempts: No Insight: Good Judgment: WNL Affect if Inappropriate: Flat Mood: Euthymic Motor Activity: Abnormal gait-specify Assessment & Plan Problem List: (1) 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 Patient denies depressive symptoms, she denies anxiety, she denies suicidal and homicidal ideation, she denies visual and auditory hallucinations. Patient is goal oriented, linear, oriented 3. No fluctuation of consciousness or attention deficit seems to be present. Current presentation seems to be consistent with catatonia, however due to recent initiation of Invega Sustenna 117 and addition was previously of relatively high doses of Risperdal at bedtime, plus mildly elevated liver enzymes, mildly elevated CPK, even though no confusion, no autonomic instability are present, early NMS also needs to be in the differential. An initial Ativan challenge of 2 mg IV was done with not a significant result, but Will start Ativan 2 mg every 6 hours to treat catatonia. Continue aggressive hydration and close monitoring of vital signs. Repeat comprehensive metabolic panel in the morning. We'll follow-up. Assessment & Plan Estimated LOS: Vinicio Cage MD Nov 30, 2016 14:36
[2016-11-30] MEDS: LORazepam 2 MG TAB PO SCH ×2 (15:15→21:38)
[2016-11-30] MEDS: CIPROFLOXACIN 0.3% OPTH SOLN 2.5 ML BTL EACH EYE SCH (18:38)
[2016-11-30 21:33] LABS: BICARBONATE 26.3 MEQ/L (21.0-32.0); POTASSIUM 3.3 MEQ/L (3.5-5.1)
[2016-11-30] MEDS: CHLORHEXIDINE GLUCONATE 0.12% 15 ML CUP SWISH-SPIT SCH (21:38)
[2016-11-30 21:54] LABS: CKMB 3.6 NG/ML (0.5-3.6)
[2016-12-01] MEDS: LORazepam 2 MG TAB PO SCH ×4 (03:03→21:45)
[2016-12-01] MEDS: SODIUM CHLOR 0.9% 1000 ML INJ 1,000 ML IV SCH ×2 (06:22→17:32)
[2016-12-01 06:52] LABS: HEMATOCRIT 35.6 % (35.0-46.0); MEAN CELL VOLUME 90.2 FL (80.0-100.0); MEAN CORPUSCULAR HEMOGLOBIN 31.1 PG (27.0-34.0); MEAN CORPUSCULAR HGB CONC 34.5 % (32.0-36.0); PLATELET COUNT 160 TH/MM3 (150-450); RED BLOOD COUNT 3.95 MIL/MM3 (4.00-5.30); RED CELL DISTRIBUTION WIDTH 13.6 % (11.6-17.2); REVIEW FLAG FINAL; WHITE BLOOD COUNT 8.5 TH/MM3 (4.0-11.0)
[2016-12-01 07:24] LABS: BICARBONATE 26.3 MEQ/L (21.0-32.0); POTASSIUM 3.5 MEQ/L (3.5-5.1)
[2016-12-01 08:00] VITALS: BP 100/58; PULSE 96; RESP 18; TEMP 97.2; O2SAT 98
[2016-12-01 09:00] LABS: CKMB 1.8 NG/ML (0.5-3.6)
[2016-12-01] MEDS: CHLORHEXIDINE GLUCONATE 0.12% 15 ML CUP SWISH-SPIT SCH ×2 (09:00→21:44)
[2016-12-01] MEDS: CIPROFLOXACIN 0.3% OPTH SOLN 2.5 ML BTL EACH EYE SCH ×3 (09:00→17:32)
[2016-12-01] MEDS: FAMOTIDINE 20 MG/2 ML VIAL IV PUSH SCH ×2 (09:44→21:44)
--- NOTE | 2016-12-01 10:29 | HHI.PR ---
Subjective Remarks Appears more lethargic, finally opened eyes, was able to provide name of hospital but doesn't know year Unable to obtain ROS Per guard at bedside, patient was able to only drink half of Ensure but did not eat rest of her meal. She ambulated with assistance per 2 to bathroom No fever Voiding okay Objective Objective Results - Vital Signs Date Time Temp Pulse Resp B/P (MAP) Pulse Ox O2 Delivery O2 Flow Rate FiO2 12/01/16 08:00 97.2 96 18 100/58 (72) 98 11/30/16 21:27 97.5 88 18 110/59 (76) 100 11/30/16 16:00 98.5 76 20 101/58 (72) 100 11/30/16 12:00 98.2 67 18 102/58 (73) 93 I/O 11/30/16 11/30/16 11/30/16 12/01/16 12/01/16 12/01/16 07:00 15:00 23:00 07:00 15:00 23:00 Intake Total 992 ml 1509 ml 1582 ml Balance 992 ml 1509 ml 1582 ml Intake IV Total 992 ml 1509 ml 1582 ml # Voids 3 Result Diagram: 12/01/16 0528 12/01/16 0528 Other Results Laboratory Tests Test 11/30/16 20:11 12/01/16 05:28 Blood Urea Nitrogen 5 6 Creatinine 0.56 0.49 Random Glucose 107 74 Calcium Level 8.3 7.9 Sodium Level 141 143 Potassium Level 3.3 3.5 Chloride Level 109 110 Carbon Dioxide Level 26.3 26.3 Anion Gap 6 7 Estimat Glomerular Filtration Rate 133 155 Total Creatine Kinase 437 312 Creatine Kinase MB 3.6 1.8 Creatine Kinase MB % 0.8 0.6 White Blood Count 8.5 Red Blood Count 3.95 Hemoglobin 12.3 Hematocrit 35.6 Mean Corpuscular Volume 90.2 Mean Corpuscular Hemoglobin 31.1 Mean Corpuscular Hemoglobin Concent 34.5 Red Cell Distribution Width 13.6 Platelet Count 160 Mean Platelet Volume 10.9 ROS General: Other (unable to obtain ROS) Physical Exam Physical Exam GENERAL: This is a well-nourished, well-developed patient, in no apparent distress. SKIN: No rashes, ecchymoses or lesions. Cool and dry. HEAD: Atraumatic. Normocephalic. No temporal or scalp tenderness. EYES: Pupils equal round and reactive. Extraocular motions intact. No scleral icterus. Bilateral conjunctiva with purulent exudate, mildly erythematous. ENT: Nose without bleeding, purulent drainage or septal hematoma. Throat without erythema, tonsillar hypertrophy or exudate. Uvula midline. Airway patent. NECK: Trachea midline. No JVD or lymphadenopathy. Supple, nontender, no meningeal signs. CARDIOVASCULAR: Regular rate and rhythm without murmurs, gallops, or rubs. RESPIRATORY: Clear to auscultation. Breath sounds equal bilaterally. No wheezes , rales, or rhonchi. GASTROINTESTINAL: Abdomen soft, non-tender, nondistended. No hepato-splenomegaly , or palpable masses. No guarding. MUSCULOSKELETAL: Extremities without clubbing, cyanosis, or edema. No joint tenderness, effusion, or edema noted. No calf tenderness. Negative Homans sign bilaterally. NEUROLOGICAL: Slightly more difficult to wake up today, finally opened eyes. Able to provide name of hospital, doesn't know year. Noted drooling. Rigidity to upper and lower extremities noted. Follows simple commands. 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 Presented catatonic with elevated CPK, concern for possible neuroleptic syndrome Catatonia -Patient a psychiatric input, patient appears to be in moderate catatonia. Benzodiazepine challenge given yesterday, minimal response -Continue with Ativan 2 mg every 6 hours Possible neuroleptic syndrome, patient noted with elevated CPK. Had Invega as well as Risperdal. Rhabdomyolysis -CPK levels trending down -Continue with IV fluids -Renal function stable -Replace potassium Bilateral conjunctivae -Ciprofloxacin 2 drops each eye 3 times a day Add heparin and continue with SCDs for DVT prophylaxis Pepcid for GI prophylaxis Patient appears more lethargic today. If she is not able to take in enough nutrition, she may require NG tube placement for tube feedings We will wait for further recommendations from psychiatry We'll add PT OT Discussed with RN Discussed with guard Discussed with Dr. Torres This patient was seen by myself and Dr. Torres, this note is written on his behalf Problem Qualifiers (1) Rhabdomyolysis: Qualified Codes: M62.82 - Rhabdomyolysis (2) Conjunctivitis: Qualified Codes: H10.33 - Unspecified acute conjunctivitis, bilateral Tali Bianchi Dec 01, 2016 10:29
[2016-12-01] MEDS ORDERED: POTASSIUM CHLORIDE 25 MEQ EFFERVESCENT TAB PO ONE (10:30)
[2016-12-01 12:00] VITALS: BP 102/60; PULSE 90; RESP 18; TEMP 97.5; O2SAT 98
--- NOTE | 2016-12-01 14:03 | HHI.PYPN ---
Subjective Remarks On psychiatric evaluation today patient was found having her physical therapy, she continues to be a slow, have difficulty walking, seems to be a little bit sedated, but stiffness, negativism,echophenomena, thought blocking seems to be improved. Patient reports normal mood, she says that she wants to get better and be discharged back home. She denies depressive symptoms, she denies suicidal and homicidal ideation, she denies visual and auditory hallucinations. Patient does not seem to be paranoid or delusional, she is mostly logical, coherent and relevant. Oriented 3, no fluctuation of consciousness. No agitation, no hostility, no behavioral dysregulation reported. Review of Systems Other No somatic complaints Objective Alert: Yes [place]: Person, Place, Date Mood: Calm Affect: Flat Memory Intact: Comment (no assessed) Hallucinations: Other (denies hallucinations) Delusions: No Delusion Type: Other (not elicited) Suicidal: Ideation (no SI) Homicidal: Ideation (no HI) Insight/Judgment Fair Labs Test 11/30/16 20:11 12/01/16 05:28 Blood Urea Nitrogen 5 MG/DL 6 MG/DL Creatinine 0.56 MG/DL 0.49 MG/DL Random Glucose 107 MG/DL 74 MG/DL Calcium Level 8.3 MG/DL 7.9 MG/DL Sodium Level 141 MEQ/L 143 MEQ/L Potassium Level 3.3 MEQ/L 3.5 MEQ/L Chloride Level 109 MEQ/L 110 MEQ/L Carbon Dioxide Level 26.3 MEQ/L 26.3 MEQ/L Anion Gap 6 MEQ/L 7 MEQ/L Estimat Glomerular Filtration Rate 133 ML/MIN 155 ML/MIN Total Creatine Kinase 437 U/L 312 U/L Creatine Kinase MB 3.6 NG/ML 1.8 NG/ML Creatine Kinase MB % 0.8 % 0.6 % White Blood Count 8.5 TH/MM3 Red Blood Count 3.95 MIL/MM3 Hemoglobin 12.3 GM/DL Hematocrit 35.6 % Mean Corpuscular Volume 90.2 FL Mean Corpuscular Hemoglobin 31.1 PG Mean Corpuscular Hemoglobin Concent 34.5 % Red Cell Distribution Width 13.6 % Platelet Count 160 TH/MM3 Mean Platelet Volume 10.9 FL Vitals/IOs Vital Signs Date Time Temp Pulse Resp B/P (MAP) Pulse Ox O2 Delivery O2 Flow Rate FiO2 12/01/16 12:00 97.5 90 18 102/60 (74) 98 11/29/16 23:46 Room Air Intake and Output 12/01/16 12/01/16 12/02/16 08:00 16:00 00:00 Intake Total 1582 ml Balance 1582 ml Assessment & Plan Problem List: (1) 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 She seems to be oversedated by Ativan. We will increase Ativan to 2 mg every 8 hours. Monitor closely sedation. CPK has continued to trending down , there is no evidence of autonomic instability. Patient benefits of psychiatric hospitalization for stabilization of catatonia. However, since the patient is under arrest, she needs to be transferred back to a [facility] to continue psychiatric treatment. Assessment & Plan Estimated LOS: days Justification for Cont. Inpt. Patient needs psychiatric hospitalization for stabilization of catatonia once medically stable. Needs to be transferred back to [facility]. Vinicio Holguin MD Dec 01, 2016 14:03
--- NOTE | 2016-12-01 15:41 | RADRPT ---
EXAM DATE/TIME: 12/01/2016 15:22 [facility] COMPARISON: No previous studies available for comparison. INDICATIONS : Altered mental status. RADIATION DOSE: 56.35 CTDIvol (mGy) MEDICAL HISTORY : Developmental delay. SURGICAL HISTORY : None. ENCOUNTER: Initial ACUITY: 1 day PAIN SCALE: Non-responsive LOCATION: cranial TECHNIQUE: Multiple contiguous axial images were obtained of the head. Using automated exposure control and adj ustment of the mA and/or kV according to patient size, radiation dose was kept as low as reasonably a chievable to obtain optimal diagnostic quality images. DICOM format image data is available electro nically for review and comparison. FINDINGS: CEREBRUM: The ventricles are normal for age. No evidence of midline shift, mass lesion, hemorrhage or acute in farction. No extra-axial fluid collections are seen. POSTERIOR FOSSA: The cerebellum and brainstem are intact. The 4th ventricle is midline. The cerebellopontine angle i s unremarkable. EXTRACRANIAL: The visualized portion of the orbits is intact. SKULL: The calvaria is intact. No evidence of skull fracture. CONCLUSION: Normal examination. Tyrel Varghese MD on December 01, 2016 at 15:39 Board Certified Radiologist. This report was verified electronically.
[2016-12-01 16:00] VITALS: BP 105/64; PULSE 84; RESP 18; TEMP 97.9; O2SAT 98
--- NOTE | 2016-12-01 16:51 | MG ---
cc: ANGIE TOMLIN MD Lab No: Date: 11/30/16 Age: 26 Sex: F Race: REFERRING PHYSICIAN ASIA Bianchi An EEG was obtained on this 26-year-old patient with history of being awake and drowsy and catatonic. The EEG shows a fair amount of alpha activity. There are beta rhythms and there is sleepy spindles. There are some K complexes. Initially, there is domination by sleep activity. Photic stimulation shows no change. INTERPRETATION Probably normal asleep EEG. No epileptiform features present. Angie Tomlin MD [facility] /2:54 PM /4:45 PM
[2016-12-01 17:47] LABS: BLOOD, URINE NEG (NEG); GLUCOSE,URINE NEG (NEG); KETONE, URINE NEG (NEG); NITRITE,URINE NEG (NEG); PH, URINE 7.5 (5.0-8.5); SQUAMOUS EPITHELIAL CELL URINE <1 /hpf (0-5); URINE COLOR LIGHT-YELLOW (YELLW/STRAW)
[2016-12-01 17:48] LABS: COMMENT (UR) CATH-CULT NOT IND; CULTURE IF INDICATED CATH CULTURE NOT IND
[2016-12-01 20:00] VITALS: BP 99/60; PULSE 99; RESP 18; TEMP 98; O2SAT 97
[2016-12-01] MEDS: HEPARIN SODIUM - SQ 10,000 UNITS/ML VIAL SQ SCH (21:44)
[2016-12-02] VITALS (7 sets, daily range): BP systolic 92–228; BP diastolic 54–117; PULSE 76–118; RESP 16–20; TEMP 97.2–98.6; O2SAT 95–98
[2016-12-02] MEDS: SODIUM CHLOR 0.9% 1000 ML INJ 1,000 ML IV SCH ×3 (02:49→22:30)
[2016-12-02] MEDS: LORazepam 2 MG TAB PO SCH ×3 (05:55→21:45)
[2016-12-02 08:17] LABS: INDIRECT BILIRUBIN 0.2 MG/DL (0.0-0.8); TOTAL BILIRUBIN ADULT 0.4 MG/DL (0.2-1.0)
--- NOTE | 2016-12-02 09:18 | HHI.PR ---
Subjective Remarks Sleeping drowsy, slow minimal response but does rouse up when breakfast comes Drooling noted while sleeping Afebrile, BP steady at 104/60 Skin warm and dry , Objective Objective Results - Vital Signs Date Time Temp Pulse Resp B/P (MAP) Pulse Ox O2 Delivery O2 Flow Rate FiO2 12/02/16 08:19 98.3 97 20 94/55 (68) 97 12/02/16 04:00 97.8 85 18 104/60 (75) 98 12/02/16 00:00 97.2 89 18 98/63 (75) 98 12/01/16 20:00 98.0 99 18 99/60 (73) 97 12/01/16 16:00 97.9 84 18 105/64 (78) 98 12/01/16 12:00 97.5 90 18 102/60 (74) 98 I/O 12/01/16 12/01/16 12/01/16 12/02/16 12/02/16 12/02/16 07:00 15:00 23:00 07:00 15:00 23:00 Intake Total 1582 ml 1472 ml Output Total 900 ml Balance 1582 ml 572 ml Intake IV Total 1582 ml 1472 ml Output Urine Total 900 ml # Voids 3 3 Result Diagram: 12/01/1652712/01/16527 ROS General: Other (limited ROS decreased responsiveness) Physical Exam Physical Exam PHYSICAL EXAMINATION GENERAL: This is a thin female Resting in the bed sleeping and entered room. HEAD: Normocephalic , atraumatic OROPHARYNGEAL: Oropharynx, dry NECK: Supple Trachea midline without deviation. CARDIAC: Regular rhythm, regular rate, S1 and S2 are heard. No murmurs rubs or gallops, no pedal edema LUNGS: Clear to auscultation bilaterally. No obvious rhonchi ABDOMEN: Flat, Soft, nontender, bowel sounds soft EXTREMITIES: No edema. Warm to touch NEUROLOGICAL: Lethargic/ drowsy to respond SKIN:Warm, dry A/P Assessment and Plan Vital signs reviewed, afebrile, BP 104/60 Labs reviewed, CT scan normal, AST 13, total protein level 5.9 Catatonia According to guard patient is still sleeping a lot, lethargic but did begin to answer one-word questions when food arrived. Still very weak and -Continue with Ativan 2 mg every 6 hours, appreciate psychiatric eval and plan a care, after medically stable, will need to be transitioned to psychiatric facility for further psychiatric treatment Seizure precautions, does show signs of appetite today, we'll monitor intake and output PT OT for strengthening and mobility evaluation, currently patient has been on bed rest past few days. Will increase activity to be out of bed but only with assistance Possible neuroleptic syndrome, Continue to monitor labs which appeared to be trending down Neuro checks Bilateral conjunctivae Medical management with Ciprofloxacin 2 drops each eye 3 times a day DVT prophylaxis, heparin SCDs Pepcid for GI prophylaxis Discharge planning based on patient's response to hospital course of treatment Discussed with nurse Discussed with guard Discussed with Dr. Torres, seen on his behalf Holli Zavaleta Dec 02, 2016 09:18
[2016-12-02] MEDS: HEPARIN SODIUM - SQ 10,000 UNITS/ML VIAL SQ SCH ×2 (09:27→21:45)
[2016-12-02] MEDS: CHLORHEXIDINE GLUCONATE 0.12% 15 ML CUP SWISH-SPIT SCH ×2 (09:27→21:46)
[2016-12-02] MEDS: FAMOTIDINE 20 MG/2 ML VIAL IV PUSH SCH ×2 (09:27→21:46)
[2016-12-02] MEDS: CIPROFLOXACIN 0.3% OPTH SOLN 2.5 ML BTL EACH EYE SCH ×3 (09:27→18:32)
--- NOTE | 2016-12-02 12:45 | MB ---
cc: ANGIE SKINNER M.D. DATE OF CONSULTATION: 12/02/16 HISTORY OF PRESENT ILLNESS She is a 26-year-old female see in neurological consultation with a history of catatonic state. She was admitted on 11/29. She came from [facility]. She had been in intermediate and was transferred to [facility] because of the psychiatric status and apparent suicidal plans or activity. The patient has a history of autism, some apparent cognitive impairment. She has been in the hospital and she was recently treated with a combination of antipsychotic medications. She was on Invega. Apparently, last dose November 20. She had been on Risperdal. She was admitted here with possible neuroleptic malignant syndrome. There has been some improvement in her overall status, rigidity and she is being treated with Ativan. The patient had an EEG yesterday which was a normal asleep study. CT brain on 12/01 also normal. CBC yesterday normal. Chemistry is showing a mildly elevated CPK on 11/30 which was 437 and yesterday it was 312. Sodium and potassium normal but slightly low potassium on 11/30. BUN and creatinine low. NEUROLOGIC EXAMINATION Exam showed the patient to be rigid, having [id number] parkinsonism features including drooling, very poor facial expression, slowness of movement in a generalized manner, some rigidity. Reflexes 1+ throughout. Plantar responses flexor. She is mumbling a few words. ASSESSMENT Parkinsonian/catatonic state, probably at least in most part related to medications. There might have been a mild neuroleptic malignant syndrome. Her temperature has been normal and blood pressure relatively low. Continue the aggressive supportive medical care, hydration and psychiatric care. Depending upon clinical course, we will consider MRI of the brain in the future. Thank you for asking us to assist in her care. Please call us back as needed. MD FRANCHESCA Hernandez/JUVENCIO /11:00 AM /12:28 PM
[2016-12-02] MEDS: FLUCONAZOLE 200 MG TAB PO SCH (21:56)
[2016-12-03] VITALS (7 sets, daily range): BP systolic 86–110; BP diastolic 52–65; PULSE 78–100; RESP 16–18; TEMP 97.5–98.7; O2SAT 97–99
[2016-12-03] MEDS: LORazepam 2 MG TAB PO SCH ×3 (05:33→22:49)
[2016-12-03] MEDS: SODIUM CHLOR 0.9% 1000 ML INJ 1,000 ML IV SCH ×3 (08:31→22:30)
[2016-12-03] MEDS: HEPARIN SODIUM - SQ 10,000 UNITS/ML VIAL SQ SCH ×2 (08:34→22:49)
[2016-12-03] MEDS: FLUCONAZOLE 200 MG TAB PO SCH (08:34)
[2016-12-03] MEDS: FAMOTIDINE 20 MG/2 ML VIAL IV PUSH SCH ×2 (08:34→23:23)
[2016-12-03] MEDS: CHLORHEXIDINE GLUCONATE 0.12% 15 ML CUP SWISH-SPIT SCH ×2 (08:34→23:01)
[2016-12-03] MEDS: CIPROFLOXACIN 0.3% OPTH SOLN 2.5 ML BTL EACH EYE SCH ×3 (08:35→17:47)
--- NOTE | 2016-12-03 09:29 | HHI.PR ---
Subjective Remarks Sleeping when entered room but roused up and answered simple questions appropriately Has been eating small amounts of her breakfast, drinking by mouth fluids better Getting up out of bed into chair and going to the bathroom Guarded in room supporting patient No acute anxiety noted Oh acute pain noted Objective Objective Results - Vital Signs Date Time Temp Pulse Resp B/P (MAP) Pulse Ox O2 Delivery O2 Flow Rate FiO2 12/03/16 08:00 98.7 83 17 103/62 (76) 97 12/03/16 04:00 97.7 100 18 110/65 (80) 98 12/03/16 00:30 98.4 93 17 106/59 (75) 97 12/02/16 21:00 98.6 110 16 107/67 (80) 95 12/02/16 16:00 98.3 118 18 92/54 (67) 95 12/02/16 12:05 98.2 98 20 104/54 (71) 97 I/O 12/02/16 12/02/16 12/02/16 12/03/16 12/03/16 12/03/16 07:00 15:00 23:00 07:00 15:00 23:00 Intake Total 1472 ml 1204 ml 1604 ml 450 ml Output Total 900 ml Balance 572 ml 1204 ml 1604 ml 450 ml Intake Oral 400 ml 450 ml IV Total 1472 ml 1204 ml 1204 ml Output Urine Total 900 ml # Voids 3 1 4 # Bowel Movements 0 0 Result Diagram: 12/01/1628 12/01/16 0528 ROS General: Fatigue (gradual improvement), Weakness, Other (10 point ROS done limited simple responses) GI: Other (appetite and by mouth intake improving) Neuro/MS: Other (sleepy and still sleeps a good bit when not being stimulated but we will respond and answer simple questions) Physical Exam Physical Exam PHYSICAL EXAMINATION GENERAL: This is a slim female who appears to be in no acute distress. She is answering simple questions HEAD: Normocephalic Facial features appear symmetric. OROPHARYNGEAL: Oropharynx dry NECK: Supple. No nuchal rigidity or lymphadenopathy. Trachea midline without deviation. CARDIAC: Regular rhythm, regular rate, S1 and S2 are heard. LUNGS: Clear to auscultation bilaterally. No audible wheezes or rhonchi ABDOMEN: Flat, Soft, nontender, no organomegaly or masses. Bowel sounds are heard in all four quadrants. No rebound. No guarding. EXTREMITIES: No lower extremity edema. Pulses equal bilateral. NEUROLOGICAL: Patient mood and affect flat but beginning to carry on more conversation SKIN:Warm and dry A/P Assessment and Plan Vital signs reviewed, afebrile, BP stable trends Labs reviewed, IV fluids continue 125 an hour Bowel regimen, patient states paper stripper BM but will verify with staff Catatonia, resolving Sleeping but responded to verbal stimuli. Beginning to talk and answer questions appropriately. Up to bathroom early this morning per guard 1, eating small amounts of food -Continue with Ativan 2 mg every 6 hours, appreciate psychiatric eval and plan a care, after medically stable, will need to be transitioned to psychiatric facility for further psychiatric treatment Seizure precautions, none noted, appetite improving taken more by mouth fluids PT OT for strengthening and mobility, out of bed today to chair, patient ready to get up now Possible neuroleptic syndrome, Continue to monitor labs which appeared to be trending down Neuro checks, stable without acute changes, seizure activity Bilateral conjunctivae, mild gradual improvement Medical management with Ciprofloxacin 2 drops each eye 3 times a day DVT prophylaxis, heparin SCDs Pepcid for GI prophylaxis Discharge planning based on patient's response to hospital course of treatment, should be able to transition to psychiatric unit within the next day or 2 Discussed with nurse Discussed with henry Discussed with Dr. Torres, seen on his behalf Holli Zavaleta Dec 03, 2016 09:29
--- NOTE | 2016-12-03 21:04 | RADRPT ---
EXAM DATE/TIME: 12/03/2016 20:21 [facility] COMPARISON: No previous studies available for comparison. INDICATIONS : Dyspnea MEDICAL HISTORY : Developmental delay. SURGICAL HISTORY : Tanner rods thoracic/ lumbar spine ENCOUNTER: Subsequent ACUITY: 3 days PAIN SCORE: Non-responsive. LOCATION: chest FINDINGS: A single view of the chest demonstrates the lungs to be symmetrically aerated without evidence of mas s, infiltrate or effusion. The cardiomediastinal contours are unremarkable. Postsurgical changes are noted in the thoracic and lumbar spine with posterior Tanner rods. Patient is mildly rotated to the left. CONCLUSION: No acute disease. Molina Mcgowan MD on December 03, 2016 at 21:03 Board Certified Radiologist. This report was verified electronically.
[2016-12-03 22:44] LABS: BETA HCG QUANT LESS THAN 1 MIU/ML (0-5)
[2016-12-04] VITALS (7 sets, daily range): BP systolic 53–108; BP diastolic 54–67; PULSE 76–90; RESP 16–20; TEMP 97.4–98.8; O2SAT 96–97
[2016-12-04] MEDS: SODIUM CHLOR 0.9% 1000 ML INJ 1,000 ML IV SCH ×3 (04:15→22:26)
[2016-12-04] MEDS: LORazepam 2 MG TAB PO SCH ×3 (06:37→22:20)
[2016-12-04] MEDS: FAMOTIDINE 20 MG/2 ML VIAL IV PUSH SCH ×2 (08:42→22:20)
[2016-12-04] MEDS: HEPARIN SODIUM - SQ 10,000 UNITS/ML VIAL SQ SCH ×2 (08:42→22:19)
[2016-12-04] MEDS: FLUCONAZOLE 200 MG TAB PO SCH (08:42)
[2016-12-04] MEDS: CHLORHEXIDINE GLUCONATE 0.12% 15 ML CUP SWISH-SPIT SCH ×2 (08:42→22:20)
[2016-12-04] MEDS: CIPROFLOXACIN 0.3% OPTH SOLN 2.5 ML BTL EACH EYE SCH ×3 (08:43→17:02)
--- NOTE | 2016-12-04 09:25 | HHI.PR ---
Subjective Remarks continues to be more alert in am, answers simple questions wants to get up OOB, encouraged to be up or dangle, but maintain safety appetite fair to good. taking PO fluids improve every day Objective Objective Results - Vital Signs Date Time Temp Pulse Resp B/P (MAP) Pulse Ox O2 Delivery O2 Flow Rate FiO2 12/04/16 07:59 98.6 88 20 108/67 (81) 97 12/04/16 05:44 98.0 84 16 100/58 (72) 96 12/04/16 00:00 98.5 76 16 107/63 (78) 97 12/03/16 20:00 98.5 78 16 101/63 (76) 97 12/03/16 16:00 97.5 82 17 106/54 (71) 99 12/03/16 12:00 98.5 82 17 86/52 (63) 98 12/03/16 11:30 94/56 (69) I/O 12/03/16 12/03/16 12/03/16 12/04/16 12/04/16 12/04/16 07:00 15:00 23:00 07:00 15:00 23:00 Intake Total 450 ml 1000 ml 1000 ml 1720 ml Output Total 850 ml Balance 450 ml 1000 ml 1000 ml 870 ml Intake Oral 450 ml 720 ml IV Total 1000 ml 1000 ml 1000 ml Output Urine Total 850 ml # Voids 4 2 4 # Bowel Movements 0 0 0 Result Diagram: 12/01/1652712/01/16527 ROS General: Other (limited 10 point review) Physical Exam Physical Exam PHYSICAL EXAMINATION GENERAL: This is a well-developed, thin female who appears to be in no acute distress. She is awake,answers simple questions sometimes. HEAD: Normocephalic, atramatic Facial features appear symmetric. OROPHARYNGEAL: Oropharynx clear NECK: Supple. thin Trachea midline without deviation. CARDIAC: Regular rhythm, regular rate, S1 and S2 are heard. no murmur LUNGS: Clear to auscultation bilaterally. ABDOMEN: Soft, flat, nontender, no organomegaly or masses. Bowel sounds are heard in all four quadrants. No rebound. No guarding. EXTREMITIES: no LE edema. Pulses equal bilateral. secured in bed with fpc restraints NEUROLOGICAL: Patient mood and affect flat, more responsive SKIN:Warm and moist A/P Assessment and Plan Labs reviewed, IV fluids, maintain hydration for now laxative today if no BM, patient says yes, but not documented? Catatonia, resolving and improving with more alertness Ativan 2 mg every 6 hours, appreciate psychiatric eval and plan a care, after medically stable, will need to be transitioned to psychiatric facility for further psychiatric treatment Seizure precautions, stable PT OT for strengthening and mobility, chair or dangle today Possible neuroleptic syndrome, Continue to monitor labs which appeared to be trending down Neuro checks, stable without acute changes, seizure activity none noted Bilateral conjunctivae, improved. Medical management with Ciprofloxacin 2 drops each eye 3 times a day DVT prophylaxis, heparin SCDs Pepcid for GI prophylaxis Discharge planning based on patient's response to hospital course of treatment, psy to assist with plan of care, currently incarcerated. Discussed with nurse Discussed with guard Discussed with Dr. Torres, seen on his behalf Holli Zavaleta Dec 04, 2016 09:25
--- NOTE | 2016-12-04 14:17 | HHI.PYPN ---
Subjective Remarks Patient was seen for psychiatric reevaluation today patient was found with physical sciences professor having a conversation. Patient is visibly more communicative, more alert, engageable in a conversation. Patient reports feeling better, denies depressive symptoms, denies anxiety, denies psychosis. His suicidal and homicidal ideation, she denies visual and auditory hallucinations. Physical examination, patient is less stiff, with improvement negativism, speech latency and waxy flexibility. Review of Systems Other No somatic complaints Objective Alert: Yes [place]: Person, Place, Date Mood: Calm Affect: Flat Memory Intact: Comment (no assessed) Hallucinations: Other (denies hallucinations) Delusions: No Delusion Type: Other (not elicited) Suicidal: Ideation (no SI) Homicidal: Ideation (no HI) Insight/Judgment Poor Vitals/IOs Vital Signs Date Time Temp Pulse Resp B/P (MAP) Pulse Ox O2 Delivery O2 Flow Rate FiO2 12/04/16 12:11 98.8 77 20 101/66 (78) 97 Intake and Output 12/04/16 12/04/16 12/05/16 08:00 16:00 00:00 Intake Total 1720 ml Output Total 850 ml 900 ml Balance 870 ml -900 ml Assessment & Plan Problem List: (1) 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 She is to have mild to moderate symptoms of catatonia. We will decrease lorazepam to 2 mg every 12 hours. Patient will benefit of psychiatric hospitalization for stabilization of behavioral symptoms of catatonia. Patient is medically stable she can be transferred to [facility]. Assessment & Plan Estimated LOS: days Justification for Cont. Inpt. Patient needs psychiatric hospitalization for stabilization. Vinicio Holguin MD Dec 04, 2016 14:17
[2016-12-05 00:25] VITALS: BP 94/55; PULSE 80; RESP 20; TEMP 97.6; O2SAT 97
[2016-12-05] MEDS: SODIUM CHLOR 0.9% 1000 ML INJ 1,000 ML IV SCH (04:52)
[2016-12-05 04:58] VITALS: BP 86/55; PULSE 82; RESP 20; TEMP 98.2; O2SAT 97
[2016-12-05 05:00] VITALS: BP 94/60
[2016-12-05 07:00] VITALS: BP 135/60; PULSE 86; RESP 20; TEMP 98.6; O2SAT 98
[2016-12-05 09:28] LABS: ANION GAP 9 MEQ/L (5-15); AST (GOT) 19 U/L (15-37); BICARBONATE 24.2 MEQ/L (21.0-32.0); BLOOD UREA NITROGEN 8 MG/DL (7-18); CHLORIDE 106 MEQ/L (98-107); GLOMERULAR FILTRATION RATE 130 ML/MIN (>89); POTASSIUM 3.8 MEQ/L (3.5-5.1); SODIUM (NA) 139 MEQ/L (136-145)
[2016-12-05] MEDS: HEPARIN SODIUM - SQ 10,000 UNITS/ML VIAL SQ SCH (09:32)
[2016-12-05] MEDS: FLUCONAZOLE 200 MG TAB PO SCH (09:32)
[2016-12-05] MEDS: LORazepam 2 MG TAB PO SCH (09:32)
[2016-12-05] MEDS: CHLORHEXIDINE GLUCONATE 0.12% 15 ML CUP SWISH-SPIT SCH (09:32)
[2016-12-05] MEDS: CIPROFLOXACIN 0.3% OPTH SOLN 2.5 ML BTL EACH EYE SCH ×2 (09:33→13:00)
[2016-12-05] MEDS: FAMOTIDINE 20 MG/2 ML VIAL IV PUSH SCH (09:33)
[2016-12-05 09:35] LABS: ALT (GPT) 41 U/L (10-53)
[2016-12-05 09:59] LABS: ALKALINE PHOSPHATASE 62 U/L (45-117); TOTAL BILIRUBIN ADULT 0.3 MG/DL (0.2-1.0)
--- NOTE | 2016-12-05 12:12 | HHI.PR ---
Subjective Remarks awakes to voice, oriented x 2 more responsive has no complaints when asked ate breakfast okay no fever ROS difficult to obtain guard at bsd Objective Objective Results - Vital Signs Date Time Temp Pulse Resp B/P (MAP) Pulse Ox O2 Delivery O2 Flow Rate FiO2 12/05/16 07:00 98.6 86 20 135/60 (85) 98 12/05/16 05:00 94/60 (71) 12/05/16 04:58 98.2 82 20 86/55 (65) 97 12/05/16 00:25 97.6 80 20 94/55 (68) 97 12/04/16 21:00 92/60 (71) 12/04/16 20:02 97.4 90 20 89/54 (66) 96 12/04/16 16:00 98.8 80 20 53/ 96 I/O 12/04/16 12/04/16 12/04/16 12/05/16 12/05/16 12/05/16 07:00 15:00 23:00 07:00 15:00 23:00 Intake Total 1720 ml 1254 ml 120 ml Output Total 850 ml 900 ml Balance 870 ml -900 ml 1254 ml 120 ml Intake Oral 720 ml 660 ml 120 ml IV Total 1000 ml 594 ml Output Urine Total 850 ml 900 ml # Voids 4 2 4 # Bowel Movements 0 Result Diagram: 12/01/16 0528 12/05/16 0745 Other Results Laboratory Tests Test 12/05/16 07:45 Blood Urea Nitrogen 8 Creatinine 0.57 Random Glucose 82 Total Protein 6.8 Albumin 3.7 Calcium Level 8.7 Alkaline Phosphatase 62 Aspartate Amino Transf (AST/SGOT) 19 Alanine Aminotransferase (ALT/SGPT) 41 Total Bilirubin 0.3 Sodium Level 139 Potassium Level 3.8 Chloride Level 106 Carbon Dioxide Level 24.2 Anion Gap 9 Estimat Glomerular Filtration Rate 130 ROS General: Other (ROS difficult to obtain ) Physical Exam Physical Exam GENERAL: This is a well-nourished, well-developed patient, in no apparent distress. SKIN: No rashes, ecchymoses or lesions. Cool and dry. HEAD: Atraumatic. Normocephalic. No temporal or scalp tenderness. EYES: Pupils equal round and reactive. Extraocular motions intact. No scleral icterus. Conjunctiva without erythema. ENT: Nose without bleeding, purulent drainage or septal hematoma. Throat without erythema, tonsillar hypertrophy or exudate. Uvula midline. Airway patent. NECK: Trachea midline. No JVD or lymphadenopathy. Supple, nontender, no meningeal signs. CARDIOVASCULAR: Regular rate and rhythm without murmurs, gallops, or rubs. RESPIRATORY: Clear to auscultation. Breath sounds equal bilaterally. No wheezes , rales, or rhonchi. GASTROINTESTINAL: Abdomen soft, non-tender, nondistended. No hepato-splenomegaly , or palpable masses. No guarding. MUSCULOSKELETAL: Extremities without clubbing, cyanosis, or edema. No joint tenderness, effusion, or edema noted. No calf tenderness. Negative Homans sign bilaterally. NEUROLOGICAL: Awake to voice, slow to respond but improved. Oriented x 2. 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 Presented catatonic with elevated CPK, concern for possible neuroleptic syndrome Catatonia -Patient a psychiatric input, patient appears to be in moderate catatonia. Benzodiazepine challenge given initially per psyche -minimal response -on Ativan 2 mg PO BID --evaluated per neurology, input appreciated. CT head negative. Labs reviewed okay. EEG normal -overall has improved s/s of catatonia, psych recommends to continue treatment at mental health unit in nursing home Possible neuroleptic syndrome, patient noted with elevated CPK. Had Invega as well as Risperdal. Rhabdomyolysis -CPK trended down -no renal dysfunction Hypotension -oon IVF NS at 125/hr -improved Bilateral conjunctivae -Ciprofloxacin 2 drops each eye 3 times a day -stable, resolved heparin and continue with SCDs for DVT prophylaxis Pepcid for GI prophylaxis PT/OT CM for dc planning, going back to nursing home today F/U psych Diet-regular, inc. intake Activity-as tolerated Discussed with RN Discussed with guard Discussed with Dr. Torres This patient was seen by myself and Dr. Torres, this note is written on his behalf Problem Qualifiers (1) Rhabdomyolysis: Qualified Codes: M62.82 - Rhabdomyolysis (2) Conjunctivitis: Qualified Codes: H10.33 - Unspecified acute conjunctivitis, bilateral Tali Bianchi Dec 05, 2016 12:12
--- NOTE | 2016-12-05 12:13 | HHI.DCPOC ---
Discharge Care Plan Diagnosis: (1) Medical clearance for psychiatric admission (2) Intellectual disability (3) Neuroleptic malignant syndrome (4) Rhabdomyolysis (5) Catatonia (6) Autism spectrum disorder (7) Conjunctivitis Your Health Problems Are: Anxiety Difficulty with ADL Goals to Promote Your Health * To prevent worsening of your condition and complications * To maintain your health at the optimal level Directions to Meet Your Goals Take your medications as prescribed Follow your dietary instruction Follow activity as directed Keep your appointments as scheduled Take your immunizations and boosters as scheduled If your symptoms worsen call your PCP, if no PCP go to Urgent Care Center or Emergency Room Smoking is Dangerous to Your Health. Avoid second hand smoke Call the 24-hour hour crisis hotline for domestic abuse at Tali Bianchi WHEEL FITTER Dec 05, 2016 12:13
--- NOTE | 2016-12-05 15:13 | HHI.PR ---
Review/Management Daily Summary 12/05 seen this am around 8:30 she was more participant, following commands but bradykinetic moves 4 limbs slowly, symmetrically spoke to officer at bedside neuro monsalve stable/improving, prn f/u Subjective Subjective Comments No acute events reported No headache No chest pain No dyspnea Allergies Allergies Coded Allergies No Known Allergies (Unverified10/02/16) Exam I&O / VS Vital Signs Date Time Temp Pulse Resp B/P (MAP) Pulse Ox O2 Delivery O2 Flow Rate FiO2 12/05/16 07:00 98.6 86 20 135/60 (85) 98 12/05/16 05:00 94/60 (71) 12/05/16 04:58 98.2 82 20 86/55 (65) 97 12/05/16 00:25 97.6 80 20 94/55 (68) 97 12/04/16 21:00 92/60 (71) 12/04/16 20:02 97.4 90 20 89/54 (66) 96 12/04/16 16:00 98.8 80 20 53/ 96 Objective Micro and Labs Laboratory Tests Test 12/05/16 07:45 Blood Urea Nitrogen 8 Creatinine 0.57 Random Glucose 82 Total Protein 6.8 Albumin 3.7 Calcium Level 8.7 Alkaline Phosphatase 62 Aspartate Amino Transf (AST/SGOT) 19 Alanine Aminotransferase (ALT/SGPT) 41 Total Bilirubin 0.3 Sodium Level 139 Potassium Level 3.8 Chloride Level 106 Carbon Dioxide Level 24.2 Anion Gap 9 Estimat Glomerular Filtration Rate 130 Meena Tomlin MD Dec 05, 2016 15:13
--- NOTE | 2016-12-05 17:36 | HHI.PYPN ---
Subjective Remarks Patient was seen today about 10:30 AM in the morning for psychiatric reevaluation, she was found more alert, more cooperative and talkative. The patient continues to show symptoms of catatonia, consisting mostly on bradykinesia, stiffness, waxy flexibility, blocking thought, poverty of speech. Patient reports good mood, she denies suicidal and homicidal ideation, she denies visual and auditory hallucinations. She is oriented 3, able to express her which to go back home last to get better. Review of Systems Other No somatic complaints Objective Alert: Yes [place]: Person, Place, Date Mood: Calm Affect: Flat Memory Intact: Comment (no assessed) Hallucinations: Other (denies hallucinations) Delusions: No Delusion Type: Other (not elicited) Suicidal: Ideation (no SI) Homicidal: Ideation (no HI) Insight/Judgment Poor Labs Test 12/05/16 07:45 Blood Urea Nitrogen 8 MG/DL Creatinine 0.57 MG/DL Random Glucose 82 MG/DL Total Protein 6.8 GM/DL Albumin 3.7 GM/DL Calcium Level 8.7 MG/DL Alkaline Phosphatase 62 U/L Aspartate Amino Transf (AST/SGOT) 19 U/L Alanine Aminotransferase (ALT/SGPT) 41 U/L Total Bilirubin 0.3 MG/DL Sodium Level 139 MEQ/L Potassium Level 3.8 MEQ/L Chloride Level 106 MEQ/L Carbon Dioxide Level 24.2 MEQ/L Anion Gap 9 MEQ/L Estimat Glomerular Filtration Rate 130 ML/MIN Vitals/IOs Vital Signs Date Time Temp Pulse Resp B/P (MAP) Pulse Ox O2 Delivery O2 Flow Rate FiO2 12/05/16 07:00 98.6 86 20 135/60 (85) 98 Assessment & Plan Problem List: (1) 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 Patient would benefit of psychiatric hospitalization for stabilization of catatonia. Unfortunately, due to her current legal situation she could not be admitted in our psychiatric unit. But she should continue her psychiatric care in [facility]. Assessment & Plan Estimated LOS: days Justification for Cont. Inpt. Patient does not meet criteria for involuntary psychiatric admission at this moment. Vinicio Holguin MD Dec 05, 2016 17:36
--- NOTE | 2016-12-06 15:01 | HHI.DS ---
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 Molina Mcgowan MD Head CT 12/01/16 0000 Signed Impressions: Service Date/Time: Thursday, December 01, 2016 15:22 - CONCLUSION: Normal examination. Tyrel Varghese MD Hospital Course Ms. Sylvester was a 26-year-old female with significant past medical history of autism spectrum disorder, ADHD, intellectual disability. Patient presented to the emergency room under police custody for evaluation for acting catatonic and elevated CK test with the concern for possible neuroleptic malignant syndrome. Review of paperwork from the nursing home, the patient was given Hemabate 117 mg on November 10, 2016 and Cogentin twice a day at [facility]. She was transferred to the nursing home and she was put on Risperdal once a day, this was stopped November 27. Patient was examined in the presence of the guard. Per the guard, patient's is usually slow to respond, but pleasant. Apparently she has become catatonic, has been drooling on herself. She was noted with rigid extremities. Patient was not able to provide much information. She knew she was in the hospital, able to provide the year but otherwise could not articulate why she was in the hospital. Patient denied any discomfort when asked. She was evaluated by psychiatrist Dr. Holguin. She denied any suicidal ideation, no homicidal ideation. She denied visual or auditory hallucinations. She was seen in September in the emergency room and evaluated by . Laboratory workup was completed. CBC unremarkable. BMP remarkable for elevated total creatinine kinase 1454, AST 58, potassium 3.4. Patient was put on IV fluids. Patient was admitted for further evaluation and treatment. Patient was admitted to the hospital, the following took place during hospitalization: 26-year-old female with history of ADHD, autism, ADHD, intellectual disability. Presented catatonic with elevated CPK, concern for possible neuroleptic syndrome Admitted with Catatonia -Appreciated psychiatric input, patient appears to be in moderate catatonia. Benzodiazepine challenge given initially per psyche -minimal response -Patient was noted somnolent, Ativan was adjusted. Was maintained Ativan 2 mg PO BID --Because of increased lethargy. Neurology consulted. Evaluated per neurology , input appreciated. CT head negative. Labs reviewed okay. EEG normal -overall had improved s/s of catatonia, psych recommended to continue treatment at mental health unit in nursing home Possible neuroleptic syndrome, patient noted with elevated CPK. Had Invega as well as Risperdal. Rhabdomyolysis -Put on IV fluid -CPK trended down -no renal dysfunction Hypotension -on IVF NS at 125/hr -improved Bilateral conjunctivitis -Ciprofloxacin 2 drops each eye 3 times a day -stable, resolved heparin and continue with SCDs for DVT prophylaxis Pepcid for GI prophylaxis PT/OT ordered CM for dc planning Patient stabilized, cleared for discharge back to nursing home. Case was discussed with Dr. Chen at the nursing home. F/U psych Diet-regular, inc. intake Activity-as tolerated Pt Condition on Discharge: Stable Discharge Disposition: Dis to Court Law Enforcem Discharge Instructions DIET: Follow Instructions for: As Tolerated, No Restrictions Activities you can perform: Weight Bearing as Emelina Follow up Referrals: Psychiatry Adult Continued Medications: Lorazepam (Lorazepam) 0.5 Mg Tab 0.5 MG PO TID PRN for ANXIETY, TAB 0 Refills Nutritional Supplements (Ensure) 1 Pow Pow 237 ML PO BID Tali Bianchi Dec 06, 2016 15:01
== END 2016-12-05 14:02 | DRG 92 ==
LOC: NEPE 18:48 → NEDA 21:26 → EEVIPCON 21:26 → N05B 11-30 01:13
PROVIDERS: ADMIT Specialist; ATTEND Specialist
DX: G21.0 Malignant neuroleptic syndrome (principal); M62.82 Rhabdomyolysis; I95.9 Hypotension, unspecified; F84.0 Autistic disorder; F06.1 Catatonic disorder due to known physiological condition; F79 Unspecified intellectual disabilities; F90.9 Attention-deficit hyperactivity disorder, unspecified type; H10.33 Unspecified acute conjunctivitis, bilateral; K11.7 Disturbances of salivary secretion; R26.2 Difficulty in walking, not elsewhere classified
CPT/HCPCS: 70450; 71010; 80048; 80053; 80076; 80307; 81001; 82550; 82552; 82607; 83605; 84443; 84702; 84703; 85025; 85027; 86592; 93005; 95819; 96360; J1644; J2060; J7030